=== PATIENT | female | born 1965 | race African-American/Black ===

== ENCOUNTER 2018-01-21 07:43 | Emergency (ER) | payer MEDICAID ==
[~2018-01-21] VITALS: Ht 160 cm; Wt 65.8 kg
[2018-01-21] MEDS ORDERED: LORATADINE1 GM MC (07:54)
[2018-01-21] MEDS ORDERED: NORCO 10-325 T1 EACH ORAL (07:54)
--- NOTE | 2018-01-21 08:28 | Emergency Room Report ---
History of Present Illness General Chief Complaint: Flu Like Symptoms Source: Patient Present Illness HPI Patient presents with complaints of body aches cough and congestion Reports ongoing for the past 2 days Denies any vomiting or diarrhea denies any neck pain or photophobia She feels that the cough is getting more productive Denies any recent travel denies any pleurisy she felt that she has some increased pain with cough on the left side of her chest Allergies: Coded Allergies: ASPIRIN (Verified Allergy, Unknown, 01/21/18) Patient History Past Medical History: see triage record Pertinent Family History: none Last Menstrual Period: 2016 Now: No Reviewed Nursing Documentation: PMH: Agreed; PSxH: Agreed Nursing Documentation-PMH Past Medical History: No History, Except For Hx Hypertension: Yes Hx COPD: Yes Review of Systems All Other Systems: negative except mentioned in HPI Physical Exam Vital Signs Date Time Temp Pulse Resp B/P (MAP) Pulse Ox O2 Delivery O2 Flow Rate FiO2 01/21/18 07:48 99.1 98 18 150/95 98 Room Air Sp02 EP Interpretation: reviewed, normal General Appearance: well appearing, no apparent distress Head: normocephalic, atraumatic Eyes: bilateral eye PERRL, bilateral eye EOMI ENT: hearing grossly normal, normal pharynx, TMs + canals normal, uvula midline Neck: full range of motion, supple, no meningismus, no bony tend Respiratory: lungs clear, normal breath sounds, no rhonchi, no respiratory distress, no retraction, no accessory muscle use Cardiovascular #1: normal peripheral pulses, regular rate, rhythm, no edema, no gallop, no JVD, no murmur Gastrointestinal: normal bowel sounds, non tender, soft, no mass, no organomegaly, non-distended, no guarding, no hernia, no pulsatile mass, no rebound Genitourinary: no CVA tenderness Musculoskeletal: normal inspection Neurologic: oriented x3, responsive, nut sifter III-XII nml as tested, motor strength/ tone normal, sensory intact Psychiatric: mood/affect normal Skin: normal color, no rash, warm/dry, palpation normal Lymphatic: normal inspection, no adenopathy Medical Decision Making Diagnostic Impression: Primary Impression: Influenza-like symptoms ER Course Patient's history and clinical exam is consistent with likely flu symptoms Given the productive cough and the presentation however x-ray imaging was obtained did not show any acute process Patient remains hemodynamically stable on the cardiac monitoring and is appropriate for close outpatient follow-up I did recommend Tamiflu as the patient was only one to 2 days from the initial symptoms however patient reports that her symptoms did not feel that significant to her she will follow closely Chest X-Ray Diagnostic Results Chest X-Ray Diagnostic Results : Chest X-Ray Ordered: Yes # of Views/Limited/Complete: 1 View Indication: Chest Pain EP Interpretation: Yes Interpretation: no consolidation, no effusion, no pneumothorax Impression: No acute disease Electronically Signed by: Moreno Morgan DO Last Vital Signs Date Time Temp Pulse Resp B/P (MAP) Pulse Ox O2 Delivery O2 Flow Rate FiO2 01/21/18 07:48 99.1 98 18 150/95 98 Room Air Status: improved Disposition: HOME, SELF-CARE Condition: Improved Scripts Dextromethorphan Hb/Doxylamine (ROBITUSSIN NIGHTTIME COUGH DM) 237 Ml Liquid 10 ML PO QHS for 5 Days, ML Prov: Moreno Morgan DO 01/21/18 Oseltamivir Phosphate (Tamiflu) 75 Mg Capsule 75 MG ORAL TWICE A DAY for 5 Days, CAP Prov: Moreno Morgan DO 01/21/18 Referrals: [facility],REFERRING (PCP) Additional Instructions: Patient is provided with the discharge instructions notified to follow up with primary doctor in the next 2-3 days otherwise return to the er with any worsening symptoms. Please note that this report is being documented using Vpon technology. This can lead to erroneous entry secondary to incorrect interpretation by the dictating instrument. Moreno Morgan DO Jan 21, 2018 08:28
[2018-01-21 08:46] VITALS: BP 148/92
[2018-01-21] MEDS ORDERED: TAMIFLU75 MG ORAL (09:37)
[2018-01-21] MEDS ORDERED: ROBITUSSIN NIG237 ML PO (09:37)
[2018-01-21 10:12] VITALS: BP 148/92
--- NOTE | 2018-01-21 13:13 | Diagnostic Imaging Report ---
Indication: Shortness of breath and cough Technique: One view of the chest Comparison: 11/04/2014 Findings: The heart is borderline enlarged. Lungs and pleural spaces are clear. The bones are unremarkable Impression: Borderline cardiomegaly. No acute process
== END 2018-01-21 10:14 | disposition home or self-care (01) ==
LOC: EMR 08:11
DX: J11.1 Influenza due to unidentified influenza virus with other respiratory manifestations (principal); I10 Essential (primary) hypertension; J44.9 Chronic obstructive pulmonary disease, unspecified; R07.9 Chest pain, unspecified; Z88.6 Allergy status to analgesic agent
CPT/HCPCS: 71045; 99283

== ENCOUNTER 2018-03-11 07:55 | Emergency (ER) | payer MEDICAID ==
[~2018-03-11] VITALS: Ht 160 cm; Wt 65.8 kg
[~2018-03-11 07:55] MED LIST: LORATADINE1 GM MC; NORCO 10-325 T1 EACH ORAL; ROBITUSSIN NIG237 ML PO; TAMIFLU75 MG ORAL
--- NOTE | 2018-03-11 08:05 | Emergency Room Report ---
History of Present Illness General Chief Complaint: Dyspnea/Respdistress Source: Patient Present Illness HPI Patient is a 52-year-old female presented after increased cough and difficulty breathing. Patient had recently been started on doxycycline. Patient was noted to have prior history of COPD and had been taking multiple inhalers. She reports being a smoker. She reported having increased nonproductive cough as well as some difficulty with respirations. She states she had gradual onset. She denies any leg pain or swelling. She denies being . She reports having some chest tightness. She denies any headache or sore throat. Allergies: Coded Allergies: ASPIRIN (Verified Allergy, Unknown, 01/21/18) Patient History Past Medical History: see triage record Last Menstrual Period: 2 years Now: No Reviewed Nursing Documentation: PMH: Agreed; PSxH: Agreed Nursing Documentation-PMH Past Medical History: No History, Except For Hx Hypertension: Yes Hx COPD: Yes Review of Systems All Other Systems: negative except mentioned in HPI Physical Exam Vital Signs Date Time Temp Pulse Resp B/P (MAP) Pulse Ox O2 Delivery O2 Flow Rate FiO2 03/11/18 07:56 97.7 92 20 137/95 99 Room Air Sp02 EP Interpretation: reviewed, normal General Appearance: normal inspection, alert, GCS 15, mild distress Head: atraumatic ENT: normal ENT inspection, hearing grossly normal, normal voice Neck: normal inspection, full range of motion, supple, no bony tend Respiratory: normal inspection, no respiratory distress, no retraction, wheezing Cardiovascular #1: regular rate, rhythm, no edema Gastrointestinal: normal inspection, normal bowel sounds, non tender, soft, no guarding, no hernia Genitourinary: no CVA tenderness Musculoskeletal: normal inspection, back normal, normal range of motion Neurologic: normal inspection, alert, oriented x3, responsive, mobile sales technician III-XII nml as tested, speech normal Psychiatric: normal inspection, judgement/insight normal, mood/affect normal Skin: normal inspection, normal color, no rash Medical Decision Making Last Vital Signs Date Time Temp Pulse Resp B/P (MAP) Pulse Ox O2 Delivery O2 Flow Rate FiO2 03/11/18 07:56 97.7 92 20 137/95 99 Room Air Umesh Munoz MD Mar 11, 2018 08:05
[2018-03-11 08:10] VITALS: BP 128/72
--- NOTE | 2018-03-11 08:10 | NUR ---
ED Nurse Note: Pt AAO x4 present at ER c/o dry, non-productive cough x1-2weeks without improving. Pt denied throat pain, N/V, SOB. Shallow voice but no signs of respiratory distress noted. Remaining calm with initial assessment and VSS.
[2018-03-11] MEDS ORDERED: SINGULAIR10 MG ORAL (08:11)
[2018-03-11] MEDS ORDERED: VENTOLIN HFA18 GM INH (08:11)
[2018-03-11] MEDS ORDERED: DOXYCYCLINE MO100 MG ORAL (08:11)
[2018-03-11] MEDS ORDERED: SYMBICORT 1601 PUFFS INH (08:11)
[2018-03-11] MEDS ORDERED: Albuterol/Ipratropium 3ml neb HHN ONE (08:15)
--- NOTE | 2018-03-11 10:30 | NUR ---
ED Nurse Note: Pt was cleared to be discharged by ERMD. Pt received prescription and discharge instruction with fully understanding demonstration. Pt amulated to be discharged. ID band removed.
[2018-03-11] MEDS ORDERED: PREDNISONE20 MG ORAL (10:31)
[2018-03-11 10:40] VITALS: BP 124/77
--- NOTE | 2018-03-11 13:26 | Diagnostic Imaging Report ---
Indication: Shortness of breath Technique: One view of the chest Comparison: 01/21/2018 Findings: Less optimal inspiration currently. Interim development of bilateral basilar interstitial opacities and left basilar airspace opacities and likely pleural fluid. The heart is borderline enlarged Impression: Hypoventilatory exam Bilateral basilar interstitial and left basilar airspace opacities, possibly in part artifactual due to low lung volumes, but edema or infiltrate suspected. Suspect left-sided pleural effusion as well
--- NOTE | 2018-03-16 18:02 | Cardiology Report ---
APPROVED REPORT EKG Measurement Heart [id number] ME [id number] Sinus rhythm with frequent premature ventricular complexes and fusion complexes Possible Left atrial enlargement Possible Inferior infarct, age undetermined Anterior infarct, age undetermined Abnormal ECG
== END 2018-03-11 10:30 | disposition home or self-care (01) ==
LOC: EMR 08:15
DX: J44.1 Chronic obstructive pulmonary disease with (acute) exacerbation (principal); I10 Essential (primary) hypertension; Z88.6 Allergy status to analgesic agent
CPT/HCPCS: 71045; 93005; 94640; 99284; J7620

== ENCOUNTER 2018-04-16 15:00 | Emergency (ER) | payer MEDICAID ==
[~2018-04-16] VITALS: Ht 160 cm; Wt 65.8 kg
[~2018-04-16 15:00] MED LIST changes: +DOXYCYCLINE MO100 MG ORAL; +PREDNISONE20 MG ORAL; +SINGULAIR10 MG ORAL; +SYMBICORT 1601 PUFFS INH; +VENTOLIN HFA18 GM INH
[2018-04-16 15:07] VITALS: BP 141/96
--- NOTE | 2018-04-16 15:07 | NUR ---
ED Nurse Note: Pt. AAOX4. ambulatory c/o hard time breathing x 1 month after taking med (doxycycline) 'I am allergic to'; patient smoked cigarette 30 min ago.
[2018-04-16] MEDS ORDERED: CYCLOBENZAPRINE10 MG ORAL (15:14)
[2018-04-16] MEDS ORDERED: MUCINEX600 MG PO (15:14)
[2018-04-16] MEDS ORDERED: NORCO 10-325 T1 EACH ORAL (15:14)
--- NOTE | 2018-04-16 15:30 | Emergency Room Report ---
History of Present Illness General Chief Complaint: Dyspnea/Respdistress Source: Patient Present Illness HPI Patient presents with dyspnea. She started having difficulty when she was treated here with doxycycline in March. She thought she was having an allergic reaction to doxycycline and therefore was treated with Benadryl and prednisone. She started having reactions the prednisone also. She is using her inhaler at this time. It has been helping. She does not have a nebulizer at home. She still smokes. She denies chest pain per se. The reaction to the prednisone was some jerking of her eyes. No loss of consciousness. No productive cough at this time. No rashes or hives. No swelling of her throat. She relates a lot of stress at this time and anxiety. She has a knot at the base of her neck. She states that this is been checked out although she doesn't think with an ultrasound. She states that her thyroid function is normal. No fevers, chills, palpitations, nausea, vomiting, diarrhea, dysuria, abdominal pain, depression, visual changes, headache. Allergies: Coded Allergies: ASPIRIN (Verified Allergy, Unknown, 01/21/18) DOXYCYCLINE (Verified Allergy, Unknown, 04/16/18) Patient History Past Medical History: see triage record Social History: Reports: smoking Social History Narrative has a child in school Last Menstrual Period: 2 years ago Reviewed Nursing Documentation: PMH: Agreed; PSxH: Agreed Nursing Documentation-PMH Past Medical History: No History, Except For Hx Cardiac Problems: No - bulging disc Hx Hypertension: No Hx Pacemaker: No Hx Asthma: No Hx COPD: Yes Hx Diabetes: No Hx Cancer: No Hx Gastrointestinal Problems: No Hx Dialysis: No History Of Psychiatric Problem: No Hx Neurological Problems: No Hx Cerebrovascular Accident: No Hx Seizures: No Physical Exam Vital Signs Date Time Temp Pulse Resp B/P (MAP) Pulse Ox O2 Delivery O2 Flow Rate FiO2 04/16/18 15:07 97.7 92 20 141/96 96 Room Air Sp02 EP Interpretation: reviewed, normal General Appearance: well appearing, no apparent distress, GCS 15 Head: normocephalic Eyes: bilateral eye normal inspection, bilateral eye PERRL ENT: moist mucus membranes Neck: supple, thyromegaly - possible nodule Respiratory: lungs clear, normal breath sounds Cardiovascular #1: regular rate, rhythm Cardiovascular #2: 2+ radial (R) Gastrointestinal: normal inspection, normal bowel sounds, non tender, no mass, non-distended Musculoskeletal: back normal, gait/station normal, normal range of motion, no calf tenderness Neurologic: alert, oriented x3, grossly normal Psychiatric: anxious Skin: normal inspection, warm/dry Medical Decision Making Diagnostic Impression: Primary Impression: Dyspnea Qualified Codes: R06.00 - Dyspnea, unspecified Additional Impressions: Tobacco abuse Anxiety ER Course Patient presents with dyspnea and multiple other complaints. Differential includes allergic reaction, anxiety, acute myocardial infarction, exacerbation COPD, pulmonary embolus amongst others. Based on physical exam pulmonary embolus less likely. Evaluation with EKG, chest x-ray and labs. Lungs are clear at this time and no breathing treatment is ordered. The patient states she can only stay for half an hour and therefore blood work is canceled. EKG without injury. Chest x-ray with increased razo the right base. There is resolution of the left infiltrate. Discussed the difficulty of making a diagnosis based on short evaluation. However as she is afebrile and his resolution on her x-ray antibiotics are not indicated at this time. Patient will be treated with a steroid inhaler and also given an anxiolytic. No apparent medical emergency at this time. Patient stable for outpatient observation and treatment. She was advised to return if she is not doing well to complete further evaluation workup. Laboratory Tests Test 04/16/18 15:30 Urine Color Pale yellow Urine Appearance Slightly cloudy Urine pH 6 (4.5-8.0) Urine Specific Coden 1.010 (1.005-1.035) Urine Protein Negative (NEGATIVE) Urine Glucose (UA) Negative (NEGATIVE) Urine Ketones Negative (NEGATIVE) Urine Blood Negative (NEGATIVE) Urine Nitrite Negative (NEGATIVE) Urine Bilirubin Negative (NEGATIVE) Urine Urobilinogen Normal MG/DL (0.0-1.0) Urine Leukocyte Esterase 1+ (NEGATIVE) H Urine RBC 0-2 /HPF (0 - 2) Urine WBC 0-2 /HPF (0 - 2) Urine Squamous Epithelial Cells Many /LPF (NONE/OCC) H Urine Bacteria Moderate /HPF (NONE) H Urine Opiates Screen Negative (NEGATIVE) Urine Barbiturates Screen Negative (NEGATIVE) Phencyclidine (PCP) Screen Negative (NEGATIVE) Urine Amphetamines Screen Negative (NEGATIVE) Urine Benzodiazepines Screen Negative (NEGATIVE) Urine Cocaine Screen Negative (NEGATIVE) Urine Marijuana (THC) Screen Negative (NEGATIVE) EKG Diagnostic Results Rate: normal Rhythm: NSR ST Segments: no acute changes Rhythm Strip Diag. Results EP Interpretation: yes Rhythm: NSR, no PVC's, no ectopy Chest X-Ray Diagnostic Results Chest X-Ray Diagnostic Results : Chest X-Ray Ordered: Yes Indication: Shortness of Breath EP Interpretation: Yes Interpretation: no effusion, no pneumothorax, other - increased razo R base Impression: Other Electronically Signed by: Electronically signed by Charlie Christian MD Last Vital Signs Date Time Temp Pulse Resp B/P (MAP) Pulse Ox O2 Delivery O2 Flow Rate FiO2 04/16/18 16:07 98.0 86 22 124/86 99 Room Air Status: unchanged Disposition: HOME, SELF-CARE Condition: Stable Scripts Lorazepam* (ATIVAN*) 0.5 Mg Tablet 0.5 MG ORAL THREE TIMES A DAY, #6 TAB Prov: Charlie Christian MD 04/16/18 Beclomethasone Dipropionate 40MCG Oral Inh (QVAR 40*) 7.3 Gm Aer.w.adap 2 PUFFS INH TWICE A DAY, #1 GM 0 Refills Prov: Charlie Christian MD 04/16/18 Charlie Christian MD Apr 16, 2018 15:30
[2018-04-16 15:57] LABS: APPEARANCE,URINE SLIGHTLY CLOUDY; BILIRUBIN, URINE NEGATIVE (NEGATIVE); COLOR,URINE PALE YELLOW; GLUCOSE, URINE (UA) NEGATIVE (NEGATIVE); KETONES,URINE NEGATIVE (NEGATIVE); LEUKOCYTE ESTERASE ,URINE 1+ (NEGATIVE); NITRITE,URINE NEGATIVE (NEGATIVE); PH,URINE 6 (4.5-8.0); PROTEIN,URINE NEGATIVE (NEGATIVE); UROBILINOGEN,URINE NORMAL MG/DL (0.0-1.0)
[2018-04-16] MEDS ORDERED: ATIVAN0.5 MG ORAL (16:03)
[2018-04-16] MEDS ORDERED: QVAR7.3 GM INH (16:03)
[2018-04-16 16:07] VITALS: BP 124/86
--- NOTE | 2018-04-16 16:07 | NUR ---
ED Nurse Note: PT. AAOX4. LEFT WITH A STEADY GAIT. LEFT WITH ALL BELONGINGS. PT. EDUCATION DONE REGARDING D/C INSTRUCTIONS. PT. VERBALIZED THE UNDERSTANDING. VSS. ID ARMBAND REMOVED
--- NOTE | 2018-04-16 17:29 | Diagnostic Imaging Report ---
Indication: Cough Technique: One view of the chest Comparison: 03/11/2018 Findings: Small left-sided pleural effusion persists, significant early smaller than that seen previously. No definite congestion currently; previously demonstrated interstitial edema largely resolved. The heart remains enlarged. The right pleural space remains clear Impression: Cardiomegaly Small left pleural effusion
--- NOTE | 2018-04-17 15:12 | Cardiology Report ---
APPROVED REPORT EKG Measurement Heart [id number] [place] [id number] Sinus rhythm with occasional premature ventricular complexes Possible Left atrial enlargement Left axis deviation Low voltage QRS Inferior infarct, age undetermined Cannot rule out Anterior infarct, age undetermined Abnormal ECG
== END 2018-04-16 16:07 | disposition home or self-care (01) ==
LOC: EMR 15:32
DX: R06.00 Dyspnea, unspecified (principal); Z72.0 Tobacco use; F41.9 Anxiety disorder, unspecified; J44.9 Chronic obstructive pulmonary disease, unspecified; Z88.6 Allergy status to analgesic agent; Z88.1 Allergy status to other antibiotic agents
CPT/HCPCS: 71045; 80307; 81003; 87086; 93005; 99284

== ENCOUNTER 2018-05-06 11:59 | Inpatient (IN) | payer MEDICAID ==
[~2018-05-06] VITALS: Ht 165.1 cm; Wt 69.9 kg
[~2018-05-06 11:59] MED LIST changes: +ATIVAN0.5 MG ORAL; +CYCLOBENZAPRINE10 MG ORAL; +MUCINEX600 MG PO; +QVAR7.3 GM INH
[2018-05-06] MEDS ORDERED: Albuterol ud Inhalation HHN ONE (12:15)
[2018-05-06] MEDS ORDERED: Ipratropium 0.02% Inh Soln 2.5ml UD HHN ONE (12:15)
[2018-05-06] MEDS ORDERED: Solu-MEDROL 125mg Inj IVP ONE (12:15)
[2018-05-06 12:34] LABS: BASOPHILS % (AUTO) 2.1 % (0.0-2.0); EOSINOPHILS % (AUTO) 1.7 % (0.0-3.0); HEMATOCRIT 41.6 % (37.0-47.0); HEMOGLOBIN 13.9 G/DL (12.0-16.0); LYMPHOCYTES % (AUTO) 40.9 % (20.0-45.0); MEAN CORPUSCULAR VOLUME 94 FL (80-99); NEUTROPHILS % (AUTO) 47.4 % (45.0-75.0); PLATELET COUNT 284 K/UL (150-450); RED BLOOD COUNT 4.44 M/UL (4.20-5.40); RED CELL DISTRIBUTION WIDTH 12.3 % (11.6-14.8); WHITE BLOOD COUNT 6.2 K/UL (4.8-10.8)
[2018-05-06 12:45] LABS: ANION GAP 8 mmol/L (5-15); BLOOD UREA NITROGEN 12 mg/dL (7-18); CARBON DIOXIDE 24 MMOL/L (21-32); CHLORIDE 109 MMOL/L (98-107); POTASSIUM 3.8 MMOL/L (3.5-5.1); SODIUM 141 MMOL/L (136-145)
[2018-05-06 12:52] VITALS: BP 134/96
[2018-05-06 12:57] LABS: ALANINE AMINOTRANSFERASE 42 U/L (12-78); ALBUMIN 3.4 G/DL (3.4-5.0); ALKALINE PHOSPHATASE 66 U/L (46-116); ASPARTATE AMINO TRANSFERASE 24 U/L (15-37); BILIRUBIN,TOTAL 0.6 MG/DL (0.2-1.0)
[2018-05-06] MEDS ORDERED: Isovue-370 150ml vial INJ PRN (13:15)
--- NOTE | 2018-05-06 13:16 | NUR ---
ED Nurse Note:urine sent to labs and pt. went to CT chest
[2018-05-06 13:27] LABS: APPEARANCE,URINE SLIGHTLY CLOUDY; BILIRUBIN, URINE NEGATIVE (NEGATIVE); COLOR,URINE PALE YELLOW; GLUCOSE, URINE (UA) NEGATIVE (NEGATIVE); KETONES,URINE NEGATIVE (NEGATIVE); LEUKOCYTE ESTERASE ,URINE NEGATIVE (NEGATIVE); NITRITE,URINE NEGATIVE (NEGATIVE); PH,URINE 5 (4.5-8.0); PROTEIN,URINE 1+ (NEGATIVE); UROBILINOGEN,URINE NORMAL MG/DL (0.0-1.0)
--- NOTE | 2018-05-06 14:15 | Diagnostic Imaging Report ---
ndication: Shortness of breath Technique: IV administration nonionic contrast. Spiral acquisitions obtained from the lung bases to the lung apices. Multiplanar and 3-D reconstructions were generated. Total dose length product 645.67 mGycm. CTDIvol(s) 18.92 mGy. Dose reduction achieved using automated exposure control Comparison: none Findings: The pulmonary arteries are well opacified. No intraluminal filling defects or other findings to suggest acute pulmonary embolus demonstrated. Pulmonary arteries are normal in caliber. No evidence of isolated right ventricular dilatation. No evidence of thoracic aortic aneurysm or dissection. Normal branching anatomy of the great neck vessels, which are patent. Small bullae are seen in the lung apices bilaterally as well as scattered elsewhere within the lungs. There is diffuse mild groundglass opacity of the pulmonary parenchyma. A focal area of groundglass opacity is seen in the superior segment of the right lower lobe, measuring 15 mm in diameter, image 42 series 8. Areas of bronchiectasis, volume loss, bronchial wall thickening are seen in the medial right middle lobe. Interstitial septal thickening is seen at the lung bases, right greater than left. Some atelectatic changes are seen at both lung bases. There is a small to moderate right and small left pleural effusion demonstrated. Atelectasis or scarring is seen in the inferior lingula on the left. There is a right hilar mass or node which measures 18 mm in diameter. This is fairly low in attenuation, measuring approximately 13 Hounsfield units. The mediastinum is diffusely edematous. Prominent mediastinal nodes are demonstrated, but difficult to measure as they are difficult to distinguish from the surrounding edematous mediastinal fat. Prevascular space nodes measure up to 22 mm in diameter. Subcarinal nodes measure up to 22 mm in diameter. There is some thickening of the pulmonary hilum on the left without discrete adenopathy. The heart is enlarged. No pericardial effusion. The included portion of the thyroid is unremarkable. No axillary or chest wall mass or adenopathy demonstrated. The bones are unremarkable. Esophagus is unremarkable. The included upper abdominal anatomy is unremarkable. Impression: Negative for evidence of acute pulmonary embolus Bullous COPD changes Cardiomegaly Bilateral pleural effusion Diffuse mild groundglass opacity of the pulmonary parenchyma, as well as basilar interstitial septal thickening, likely reflecting mild pulmonary edema 18 mm right hilar mass or node. This is low in attenuation, indicating that it could be necrotic or could represent a cystic structure Borderline enlarged mediastinal lymph nodes. Focal 15 mm groundglass nodule in the right lower lobe. Consider short interval CT follow-up at 6-[address] scanner at [facility] is accredited by the [employer] and the scans are performed using protocols designed to limit radiation exposure to as low as reasonably achievable to attain images of sufficient resolution adequate for diagnostic evaluation.
--- NOTE | 2018-05-06 14:17 | Diagnostic Imaging Report ---
Indication: Shortness of breath Technique: One view of the chest Comparison: 04/16/2018 Findings: Heart is enlarged. Bilateral interstitial congestion appears slightly worse than on the prior exam. Bilateral small pleural effusions appear new or increased from the prior exam. Impression: Cardiomegaly Bilateral interstitial edema and small bilateral pleural effusions, all increased from prior study of 04/16/2018
--- NOTE | 2018-05-06 14:34 | Emergency Room Report ---
History of Present Illness General Chief Complaint: Dyspnea/Respdistress Source: Patient Present Illness HPI 52-year-old female presents ED for evaluation. Patient complaining of shortness of breath since last night. States that she's been prescribed inhalers in the past. Was told that she has COPD. States her inhaler is not helping her at this time. Denies cough. Denies chest pain. Denies fevers or chills. States she has not smoked recently because of her wheezing. Denies sick contacts or recent travel. No other aggravating relieving factors. Denies any other associated symptoms Allergies: Coded Allergies: ASPIRIN (Verified Allergy, Unknown, 05/06/18) DOXYCYCLINE (Verified Allergy, Unknown, 05/06/18) Patient History Past Medical History: COPD Past Surgical History: none Pertinent Family History: none Social History: Denies: smoking, alcohol use, drug use Last Menstrual Period: 2016 Now: No Immunizations: UTD Reviewed Nursing Documentation: PMH: Agreed; PSxH: Agreed Nursing Documentation-PMH Past Medical History: No History, Except For Hx Cardiac Problems: No - bulging disc Hx Hypertension: No Hx Pacemaker: No Hx Asthma: No Hx COPD: Yes Hx Diabetes: No Hx Cancer: No Hx Gastrointestinal Problems: No Hx Dialysis: No Hx Neurological Problems: No Hx Cerebrovascular Accident: No Hx Seizures: No Review of Systems All Other Systems: negative except mentioned in HPI Physical Exam Vital Signs Date Time Temp Pulse Resp B/P (MAP) Pulse Ox O2 Delivery O2 Flow Rate FiO2 05/06/18 12:02 97.3 98 20 134/96 97 Room Air 05/06/18 12:33 21 Sp02 EP Interpretation: reviewed, normal General Appearance: no apparent distress, alert, GCS 15, non-toxic Head: normocephalic, atraumatic Eyes: bilateral eye normal inspection, bilateral eye PERRL ENT: hearing grossly normal, normal pharynx, no angioedema, normal voice Neck: full range of motion, supple/symm/no masses Respiratory: chest non-tender, normal breath sounds, speaking full sentences, wheezing Cardiovascular #1: regular rate, rhythm, no edema Cardiovascular #2: 2+ carotid (R), 2+ carotid (L), 2+ radial (R), 2+ radial (L) , 2+ dorsalis pedis (R), 2+ dorsalis pedis (L) Gastrointestinal: normal bowel sounds, non tender, soft, non-distended, no guarding, no rebound Rectal: deferred Genitourinary: normal inspection, no CVA tenderness Musculoskeletal: back normal, gait/station normal, normal range of motion, non- tender Neurologic: alert, oriented x3, responsive, motor strength/tone normal, sensory intact, speech normal Psychiatric: judgement/insight normal, memory normal, mood/affect normal, no suicidal/homicidal ideation Reflexes: 3+ bicep (R), 3+ bicep (L), 3+ tricep (R), 3+ tricep (L), 3+ knee (R) , 3+ knee (L) Skin: normal color, no rash, warm/dry, well hydrated Lymphatic: no adenopathy Procedures Critical Care Time Critical Care Time i. I feel this is a highly complex case requiring extensive working including EKG/Rhythm strip, Xray/CT/US, Blood/urine lab work, repeat exams while in ED, and administration of strong opiates/narcotics for pain control, admission to hospital or close patient follow up. Total time: 45 min bedside evaluation and treatment excludes procedures (EKG). Reason for critical care: dyspnea, elevated troponin Possible complications: hypotension, hypertension, MA, shock, arrhythmias, metabolic acidosis, end organ damage, respiratory failure. Interventions: labs, EKG, CXR, nebulizer treatments, evaluation of d-dimer, CTA. heparin. Course: Patient presenting with shortness of breath persistent despite nebulizer treatments. Labs show elevated troponin of 1.7, d-dimer elevated. EKG showing no ST elevations. CTA J shows no evidence of PE. COPD with bullous changes. Heparin given. aspirin given Consultations: nursing staff, EMS, family Performed by: Dr Nicole Tolerated well condition = serious j. because of unstable vital signs this patient had a condition that could potentially threaten life or limb. I feel this is a critical patient who required my full attention while patient was considered critical. Total Critical Care Time excluding procedures was greater than 45 minutes Medical Decision Making Diagnostic Impression: Primary Impression: NSTEMI (non-ST elevated myocardial infarction) Additional Impression: COPD exacerbation ER Course Hospital Course 52-year-old female presents ED complaining of SOB. Differential diagnoses include: MA/unstable angina, contusion, muscle strain, PTX, rib fracture Clinical course After initial history and physical I ordered labs, EKG, chest x-ray, nebulizer treatment labs reviewed- no leukocytosis, electrolytes ok, trop 1.7, d-dimer elevated EKG- NSR, no acute ischemic changes interrepted by me Chest x-ray- cardiomegaly CTA - no evidence of PE. evidence of COPD with bullous changes Patient denies chest pain. No evidence of ST elevations. Patient given Plavix , heparin drip started patient will be admitted to Dr Lambert's service I. I feel this is a highly complex case requiring extensive working including EKG/Rhythm strip, Xray/CT/US, Blood/urine lab work, repeat exams while in ED, and administration of strong opiates/narcotics for pain control, admission to hospital or close patient follow up. Diagnosis - NSTEMI, COPD admitted to [facility] in serious condition Labs Test 05/06/18 12:20 05/06/18 13:00 White Blood Count 6.2 K/UL (4.8-10.8) Red Blood Count 4.44 M/UL (4.20-5.40) Hemoglobin 13.9 G/DL (12.0-16.0) Hematocrit 41.6 % (37.0-47.0) Mean Corpuscular Volume 94 FL (80-99) Mean Corpuscular Hemoglobin 31.2 PG (27.0-31.0) Mean Corpuscular Hemoglobin Concent 33.4 G/DL (32.0-36.0) Red Cell Distribution Width 12.3 % (11.6-14.8) Platelet Count 284 K/UL (150-450) Mean Platelet Volume 8.3 FL (6.5-10.1) Neutrophils (%) (Auto) 47.4 % (45.0-75.0) Lymphocytes (%) (Auto) 40.9 % (20.0-45.0) Monocytes (%) (Auto) 8.0 % (1.0-10.0) Eosinophils (%) (Auto) 1.7 % (0.0-3.0) Basophils (%) (Auto) 2.1 % (0.0-2.0) Prothrombin Time 10.9 SEC (9.30-11.50) Prothromb Time International Ratio 1.0 (0.9-1.1) Activated Partial Thromboplast Time 28 SEC (23-33) D-Dimer 0.91 mg/L FEU (0.00-0.49) Sodium Level 141 MMOL/L (136-145) Potassium Level 3.8 MMOL/L (3.5-5.1) Chloride Level 109 MMOL/L (98-107) Carbon Dioxide Level 24 MMOL/L (21-32) Anion Gap 8 mmol/L (5-15) Blood Urea Nitrogen 12 mg/dL (7-18) Creatinine 1.0 MG/DL (0.55-1.30) Estimat Glomerular Filtration Rate > 60 mL/min (>60) Glucose Level 92 MG/DL (74-106) Calcium Level 9.0 MG/DL (8.5-10.1) Total Bilirubin 0.6 MG/DL (0.2-1.0) Aspartate Amino Transf (AST/SGOT) 24 U/L (15-37) Alanine Aminotransferase (ALT/SGPT) 42 U/L (12-78) Alkaline Phosphatase 66 U/L (46-116) Troponin I 1.707 ng/mL (0.000-0.056) Pro-B-Type Natriuretic Peptide 4291 pg/mL (0-125) Total Protein 6.7 G/DL (6.4-8.2) Albumin 3.4 G/DL (3.4-5.0) Globulin 3.3 g/dL Albumin/Globulin Ratio 1.0 (1.0-2.7) Urine Color Pale yellow Urine Appearance Slightly cloudy Urine pH 5 (4.5-8.0) Urine Specific [place] 1.015 (1.005-1.035) Urine Protein 1+ (NEGATIVE) Urine Glucose (UA) Negative (NEGATIVE) Urine Ketones Negative (NEGATIVE) Urine Blood Negative (NEGATIVE) Urine Nitrite Negative (NEGATIVE) Urine Bilirubin Negative (NEGATIVE) Urine Urobilinogen Normal MG/DL (0.0-1.0) Urine Leukocyte Esterase Negative (NEGATIVE) Urine RBC 2-4 /HPF (0 - 2) Urine WBC 2-4 /HPF (0 - 2) Urine Squamous Epithelial Cells Moderate /LPF (NONE/OCC) Urine Bacteria Few /HPF (NONE) EKG Diagnostic Results Rate: normal Rhythm: NSR ST Segments: no acute changes ASA given to the pt in ED: Yes Rhythm Strip Diag. Results EP Interpretation: yes Rhythm: NSR, no PVC's, no ectopy Chest X-Ray Diagnostic Results Chest X-Ray Diagnostic Results : Chest X-Ray Ordered: Yes # of Views/Limited/Complete: 1 View Indication: Shortness of Breath EP Interpretation: Yes Interpretation: no pneumothorax, other - cardiomegaly, bialteral effusions Impression: Other - chf Electronically Signed by: Electronically signed by Curtis Nicole MD CT/MRI/US Diagnostic Results CT/MRI/US Diagnostic Results : Imaging Test Ordered: CTA Chest Impression no evidence of PE. COPD changes with bullous changes. bilateral effusions Last Vital Signs Date Time Temp Pulse Resp B/P (MAP) Pulse Ox O2 Delivery O2 Flow Rate FiO2 05/06/18 12:52 97.3 94 23 134/96 100 Room Air 21 Status: improved Disposition: ADMITTED INPATIENT Condition: Serious Referrals: NOT CHOSEN IPA/,REFERRING (PCP) Curtis Nicole MD May 06, 2018 14:34
--- NOTE | 2018-05-06 14:41 | NUR ---
ED Nurse Note:pt. came back from CT scan, was placed back on monitor
[2018-05-06] MEDS ORDERED: Heparin 25,000u/D5W 500ml 500 ML IV SCH ×3 (15:15→22:45)
[2018-05-06] MEDS ORDERED: Heparin 5000 units/ml inj IV ONE (15:15)
--- NOTE | 2018-05-06 15:47 | NUR ---
ED Nurse Note:started heparin drip at 1540, ordered new ptt in 6 hrs
[2018-05-06 16:24] VITALS: BP 144/81
[2018-05-06] MEDS ORDERED: OMEPRAZOLE40 M1 ORAL (18:03)
[2018-05-06] MEDS ORDERED: ZITHROMAX250 MG ORAL (18:03)
[2018-05-06] MEDS ORDERED: RANITIDINE HCL150 MG ORAL (18:03)
[2018-05-06 18:05] VITALS: BP 145/81
--- NOTE | 2018-05-06 18:06 | NUR ---
ED Nurse Note:called SDU to give report- was told that pt. will come after 07:30
--- NOTE | 2018-05-06 18:47 | Cardiac Electrophysiology PN ---
Subjective Subjective [id number] Objective Last 24 Hour Vital Signs Date Time Temp Pulse Resp B/P (MAP) Pulse Ox O2 Delivery O2 Flow Rate FiO2 05/06/18 18:05 97.3 97 23 145/81 100 Room Air 21 05/06/18 16:24 97.3 100 24 144/81 100 Room Air 21 05/06/18 12:52 97.3 94 23 134/96 100 Room Air 21 05/06/18 12:52 97 23 Room Air 21 05/06/18 12:46 97 23 100 Room Air 21 05/06/18 12:37 89 16 Room Air 21 05/06/18 12:33 89 16 97 Room Air 21 05/06/18 12:33 21 05/06/18 12:02 97.3 98 20 134/96 97 Room Air Laboratory Tests Test 05/06/18 12:20 05/06/18 13:00 White Blood Count 6.2 K/UL (4.8-10.8) Red Blood Count 4.44 M/UL (4.20-5.40) Hemoglobin 13.9 G/DL (12.0-16.0) Hematocrit 41.6 % (37.0-47.0) Mean Corpuscular Volume 94 FL (80-99) Mean Corpuscular Hemoglobin 31.2 PG (27.0-31.0) H Mean Corpuscular Hemoglobin Concent 33.4 G/DL (32.0-36.0) Red Cell Distribution Width 12.3 % (11.6-14.8) Platelet Count 284 K/UL (150-450) Mean Platelet Volume 8.3 FL (6.5-10.1) Neutrophils (%) (Auto) 47.4 % (45.0-75.0) Lymphocytes (%) (Auto) 40.9 % (20.0-45.0) Monocytes (%) (Auto) 8.0 % (1.0-10.0) Eosinophils (%) (Auto) 1.7 % (0.0-3.0) Basophils (%) (Auto) 2.1 % (0.0-2.0) H Prothrombin Time 10.9 SEC (9.30-11.50) Prothromb Time International Ratio 1.0 (0.9-1.1) Activated Partial Thromboplast Time 28 SEC (23-33) D-Dimer 0.91 mg/L FEU (0.00-0.49) H Sodium Level 141 MMOL/L (136-145) Potassium Level 3.8 MMOL/L (3.5-5.1) Chloride Level 109 MMOL/L (98-107) H Carbon Dioxide Level 24 MMOL/L (21-32) Anion Gap 8 mmol/L (5-15) Blood Urea Nitrogen 12 mg/dL (7-18) Creatinine 1.0 MG/DL (0.55-1.30) Estimat Glomerular Filtration Rate > 60 mL/min (>60) Glucose Level 92 MG/DL (74-106) Calcium Level 9.0 MG/DL (8.5-10.1) Total Bilirubin 0.6 MG/DL (0.2-1.0) Aspartate Amino Transf (AST/SGOT) 24 U/L (15-37) Alanine Aminotransferase (ALT/SGPT) 42 U/L (12-78) Alkaline Phosphatase 66 U/L (46-116) Troponin I 1.707 ng/mL (0.000-0.056) Pro-B-Type Natriuretic Peptide 4291 pg/mL (0-125) H Total Protein 6.7 G/DL (6.4-8.2) Albumin 3.4 G/DL (3.4-5.0) Globulin 3.3 g/dL Albumin/Globulin Ratio 1.0 (1.0-2.7) Urine Color Pale yellow Urine Appearance Slightly cloudy Urine pH 5 (4.5-8.0) Urine Specific [place] 1.015 (1.005-1.035) Urine Protein 1+ (NEGATIVE) H Urine Glucose (UA) Negative (NEGATIVE) Urine Ketones Negative (NEGATIVE) Urine Blood Negative (NEGATIVE) Urine Nitrite Negative (NEGATIVE) Urine Bilirubin Negative (NEGATIVE) Urine Urobilinogen Normal MG/DL (0.0-1.0) Urine Leukocyte Esterase Negative (NEGATIVE) Urine RBC 2-4 /HPF (0 - 2) H Urine WBC 2-4 /HPF (0 - 2) Urine Squamous Epithelial Cells Moderate /LPF (NONE/OCC) H Urine Bacteria Few /HPF (NONE) Eleazar Jacinto MD May 06, 2018 18:47
--- NOTE | 2018-05-06 18:59 | NUR ---
ED Nurse Note:pt. was transfered to SDU unit
[2018-05-06] MEDS ORDERED: Albuterol/Ipratropium 3ml neb HHN PRN (19:30)
[2018-05-06] MEDS ORDERED: Morphine Sulfate 2mg/ml Inj(IV/IM USE ONLY) IVP PRN (19:30)
[2018-05-06] MEDS ORDERED: Nitroglycerin Subl 0.4mg tab SL PRN (19:30)
--- NOTE | 2018-05-06 19:30 | NUR ---
NURSE NOTES: Received report from BERNARDA Iraheta. Pt's admitted to SDU from ER due to COPD exacerbation, and NSTEMI, currently on heparin drip at 12units/kg/hr via Right AC 20G. Pt's AO x 4, pleasant, on room air, VS stable, regular diet PO, able to ambulate with steady gait. Denies any other concerns/complaints at this time. Call light within reach, Bed in low and locked position. Will continue to monitor.
[2018-05-06 20:00] VITALS: BP 123/80
--- NOTE | 2018-05-06 20:05 | History and Physical ---
History of Present Illness General Date patient seen: May 06, 2018 Time patient seen: 19:44 Reason for Hospitalization: Dyspnea/Respdistress Present Illness HPI 52-year-old female presents ED for evaluation. Patient complaining of shortness of breath since last night. States that she's been prescribed inhalers in the past. Was told that she has COPD. States her inhaler is not helping her at this time. Denies cough. Denies chest pain. Denies fevers or chills. States she has not smoked recently because of her wheezing. Denies sick contacts or recent travel. No other aggravating relieving factors. Denies any other associated symptoms. states that she is having this burning sensations feeling for a while. has not smoked in last 3 days. denies any cocaine/ admits some marijuana. no alcohol for last week -stoppped due to burning feeling. states last time she got prednisone and that was making my eyes coming out. I googled and stopped prednisone. states now feeling ok. no chest pain now. no leg swelling. feels short of breath with talking. mentions heart doc just saw her and getting ultrasound of heart. states allergy to aspirin. Allergies: Coded Allergies: ASPIRIN (Verified Allergy, Unknown, 05/06/18) DOXYCYCLINE (Verified Allergy, Unknown, 05/06/18) Medication History Scheduled Azithromycin* (Zithromax*), 250 MG ORAL DAILY, (Reported) Omeprazole (Omeprazole), Unknown Dose ORAL DAILY, (Reported) Miscellaneous Medications Ranitidine Hcl* (Zantac*), Unknown Dose ORAL, (Reported) Discontinued Medications Albuterol Sulfate (Ventolin Hfa), 2 PUFFS INH EVERY 6 HOURS, (Reported) Discontinued Reason: Pt stopped taking med Beclomethasone Dipropionate 40MCG Oral Inh (Qvar 40*), 2 PUFFS INH TWICE A DAY Discontinued Reason: Pt stopped taking med Budesonide/Formoterol Fumarate (Symbicort 160-4.5 Mcg Inhaler), 1 PUFF INH TWICE A DAY, (Reported) Discontinued Reason: Pt stopped taking med Cyclobenzaprine Hcl* (Flexeril*), 10 MG ORAL THREE TIMES A DAY, (Reported) Discontinued Reason: Pt stopped taking med Dextromethorphan Hb/Doxylamine (Robitussin Nighttime Cough Dm), 10 ML PO QHS Discontinued Reason: Pt stopped taking med Doxycycline Monohydrate* (Doxycycline Monohydrate*), 100 MG ORAL TWICE A DAY, ( Reported) Discontinued Reason: Pt stopped taking med Guaifenesin (Mucinex), Unknown Dose PO BID, (Reported) Discontinued Reason: Pt stopped taking med Hydrocodone Bit/Acetaminophen 10-325* ([place] 10-325*), Unknown Dose ORAL Q4H PRN for For Pain, (Reported) Discontinued Reason: Pt stopped taking med Hydrocodone Bit/Acetaminophen 10-325* ([place] 10-325*), 1 TAB ORAL Q6H PRN for For Pain, (Reported) Discontinued Reason: Pt stopped taking med Loratadine (Loratadine), Unknown Dose MC, (Reported) Discontinued Reason: Pt stopped taking med Lorazepam* (Ativan*), 0.5 MG ORAL THREE TIMES A DAY Discontinued Reason: Pt stopped taking med Montelukast Sodium* (Singulair*), 10 MG ORAL DAILY, (Reported) Discontinued Reason: Pt stopped taking med Oseltamivir Phosphate (Tamiflu), 75 MG ORAL TWICE A DAY Discontinued Reason: Pt stopped taking med Prednisone* (Prednisone*), 40 MG ORAL DAILY Discontinued Reason: Pt stopped taking med Patient History History Provided By: Patient Healthcare decision maker Resuscitation status Full code Advanced Directive on File none Patient History Narrative as above in HPI Past Medical/Surgical History Past Medical/Surgical History: (1) Dyspnea (2) Tobacco abuse (3) Spine disorder Review of Systems Constitutional: Reports: no symptoms Eye: Reports: blurred vision, other ENT: Reports: no symptoms Respiratory: Reports: shortness of breath, wheezing Cardiovascular: Reports: other Gastrointestinal: Reports: constipation Genitourinary: Reports: no symptoms Musculoskeletal: Reports: no symptoms Skin: Reports: no symptoms Psychiatric: Reports: no symptoms Neurological: Reports: no symptoms Endocrine: Reports: no symptoms Hematologic/Lymphatic: Reports: no symptoms ROS Narrative states she just finished antibiotics given by PCP for 4 days. deneis chest pain but had burning. no radiaiton to arms/jaw. she googled and found better on head up position/.sitting up. states has copd and has taken prednisone before. other than constipation- denies any gi/gu symptoms. States had blurred vision due to prednisone- may be it was too high dose last time. Physical Exam General Appearance: WD/WN, alert, moderate distress HEENT: normocephalic, anicteric, mucous membranes moist, PERRL, supple, no JVD Neck: non-tender, supple Respiratory/Chest: chest wall non-tender, normal breath sounds, respiratory distress, crackles/rales Cardiovascular/Chest: regular rhythm, no gallop/murmur Abdomen: normal bowel sounds, non tender, soft, no organomegaly Extremities: no calf tenderness, normal capillary refill, no edema, no cyanosis Skin Exam: warm/dry, no diaphoresis Neurologic: lead sustainability specialist II-XII grossly normal, no motor/sensory deficits, alert, oriented x 3 Musculoskeletal: normal muscle bulk Physical Exam Narrative Dyspnea on talking. has basal crackles. Last 24 Hour Vital Signs Date Time Temp Pulse Resp B/P (MAP) Pulse Ox O2 Delivery O2 Flow Rate FiO2 05/06/18 18:58 97.3 97 23 145/81 100 Room Air 21 05/06/18 18:05 97.3 97 23 145/81 100 Room Air 21 05/06/18 16:24 97.3 100 24 144/81 100 Room Air 21 05/06/18 12:52 97.3 94 23 134/96 100 Room Air 21 05/06/18 12:52 97 23 Room Air 21 05/06/18 12:46 97 23 100 Room Air 21 05/06/18 12:37 89 16 Room Air 21 05/06/18 12:33 89 16 97 Room Air 21 05/06/18 12:33 21 05/06/18 12:02 97.3 98 20 134/96 97 Room Air Laboratory Tests Test 05/06/18 12:20 05/06/18 13:00 White Blood Count 6.2 K/UL (4.8-10.8) Red Blood Count 4.44 M/UL (4.20-5.40) Hemoglobin 13.9 G/DL (12.0-16.0) Hematocrit 41.6 % (37.0-47.0) Mean Corpuscular Volume 94 FL (80-99) Mean Corpuscular Hemoglobin 31.2 PG (27.0-31.0) H Mean Corpuscular Hemoglobin Concent 33.4 G/DL (32.0-36.0) Red Cell Distribution Width 12.3 % (11.6-14.8) Platelet Count 284 K/UL (150-450) Mean Platelet Volume 8.3 FL (6.5-10.1) Neutrophils (%) (Auto) 47.4 % (45.0-75.0) Lymphocytes (%) (Auto) 40.9 % (20.0-45.0) Monocytes (%) (Auto) 8.0 % (1.0-10.0) Eosinophils (%) (Auto) 1.7 % (0.0-3.0) Basophils (%) (Auto) 2.1 % (0.0-2.0) H Prothrombin Time 10.9 SEC (9.30-11.50) Prothromb Time International Ratio 1.0 (0.9-1.1) Activated Partial Thromboplast Time 28 SEC (23-33) D-Dimer 0.91 mg/L FEU (0.00-0.49) H Sodium Level 141 MMOL/L (136-145) Potassium Level 3.8 MMOL/L (3.5-5.1) Chloride Level 109 MMOL/L (98-107) H Carbon Dioxide Level 24 MMOL/L (21-32) Anion Gap 8 mmol/L (5-15) Blood Urea Nitrogen 12 mg/dL (7-18) Creatinine 1.0 MG/DL (0.55-1.30) Estimat Glomerular Filtration Rate > 60 mL/min (>60) Glucose Level 92 MG/DL (74-106) Calcium Level 9.0 MG/DL (8.5-10.1) Total Bilirubin 0.6 MG/DL (0.2-1.0) Aspartate Amino Transf (AST/SGOT) 24 U/L (15-37) Alanine Aminotransferase (ALT/SGPT) 42 U/L (12-78) Alkaline Phosphatase 66 U/L (46-116) Troponin I 1.707 ng/mL (0.000-0.056) Pro-B-Type Natriuretic Peptide 4291 pg/mL (0-125) H Total Protein 6.7 G/DL (6.4-8.2) Albumin 3.4 G/DL (3.4-5.0) Globulin 3.3 g/dL Albumin/Globulin Ratio 1.0 (1.0-2.7) Urine Color Pale yellow Urine Appearance Slightly cloudy Urine pH 5 (4.5-8.0) Urine Specific [place] 1.015 (1.005-1.035) Urine Protein 1+ (NEGATIVE) H Urine Glucose (UA) Negative (NEGATIVE) Urine Ketones Negative (NEGATIVE) Urine Blood Negative (NEGATIVE) Urine Nitrite Negative (NEGATIVE) Urine Bilirubin Negative (NEGATIVE) Urine Urobilinogen Normal MG/DL (0.0-1.0) Urine Leukocyte Esterase Negative (NEGATIVE) Urine RBC 2-4 /HPF (0 - 2) H Urine WBC 2-4 /HPF (0 - 2) Urine Squamous Epithelial Cells Moderate /LPF (NONE/OCC) H Urine Bacteria Few /HPF (NONE) Height (Feet): 5 Height (Inches): 3.00 Weight (Pounds): 146 Medications Current Medications Medications (Trade) Dose Ordered Sig/Ct Route PRN Reason Start Time Stop Time Status Last Admin Dose Admin Acetaminophen (Tylenol) 650 mg Q4H PRN ORAL Mild Pain (Pain Scale 1-3) 05/06/18 19:30 06/05/18 19:29 UNV Albuterol/ Ipratropium (Albuterol/ Ipratropium) 3 ml EVERY 6 HOURS PRN HHN Shortness of Breath 05/06/18 19:30 05/11/18 19:29 UNV Albuterol/ Ipratropium (Albuterol/ Ipratropium) 3 ml Q6HR HHN 05/07/18 00:00 05/12/18 00:00 UNV Atorvastatin Calcium (Lipitor) 20 mg BEDTIME ORAL 05/06/18 21:00 06/05/18 20:59 Clopidogrel Bisulfate (Plavix) 75 mg DAILY ORAL 05/07/18 09:00 06/06/18 08:59 Docusate Sodium (Colace) 100 mg EVERY 12 HOURS ORAL 05/06/18 21:00 06/05/18 20:59 UNV Heparin Sodium/ Dextrose 500 ml @ 15.894 mls/ hr ADJUST PER PROTOCOL IV 05/06/18 15:15 06/05/18 15:14 05/06/18 15:37 Heparin Sodium/ Dextrose 500 ml @ 15.894 mls/ hr ADJUST PER PROTOCOL IV 05/06/18 19:30 06/05/18 19:29 UNV Iopamidol (Isovue-370 150ml) 150 ml NOW PRN INJ Radiology Procedure 05/06/18 13:15 05/08/18 13:01 Metoprolol Tartrate (Lopressor) 25 mg Q12HR ORAL 05/06/18 21:00 06/05/18 20:59 Morphine Sulfate (Morphine Sulfate) 1 mg EVERY 4 HOURS PRN IVP For Pain 05/06/18 19:30 05/13/18 19:29 UNV Nitroglycerin (Ntg) 0.4 mg Every 5 Minutes PRN SL Prn Chest Pain 05/06/18 19:30 06/05/18 19:29 UNV Ondansetron HCl (Zofran) 4 mg Q6H PRN IVP Nausea & Vomiting 05/06/18 19:30 06/05/18 19:29 UNV Pantoprazole (Protonix) 40 mg DAILY ORAL 05/07/18 09:00 06/06/18 08:59 UNV Assessment/Plan Assessment/Plan . NSTEMI: Admit to [facility]. Cardiology consulted. allergy to asa, started on plavix , anticoag full dose, BB . further recs per card. consider lasix. CT negative for PE. Trop I level high/ EKG no acute changes per ER. -COPD ; continue nebulizers. ongoing counselling about smoking. states has not smoked in last 3 days. consdier steroids if not better. just finished antibiotics. monitor. -Counselling about marijuana use -Chronic spine disorder; sp epidural and on pain meds- states has not been taking now sicne heart moya. fu PCP Adryan Loera MD May 06, 2018 20:05
[2018-05-06] MEDS: Docusate 100mg cap ORAL SCH (20:28)
[2018-05-06] MEDS: Metoprolol 25mg tab ORAL SCH (20:29)
[2018-05-06] MEDS ORDERED: Atorvastatin 20mg tab ORAL SCH (21:00)
[2018-05-06] MEDS ORDERED: Heparin 5000 units/ml inj IV SCH ×3 (22:45→23:15)
--- NOTE | 2018-05-06 23:16 | Consultation ---
DATE OF CONSULTATION: 05/06/2018 CARDIOLOGY CONSULTATION CONSULTING PHYSICIAN: Eleazar Jacinto M.D. REFERRING PHYSICIAN: Christopher Mari M.D. REASON FOR CONSULTATION: Increasing shortness of breath. HISTORY OF PRESENT ILLNESS: This is a 52-year-old lady with history of chronic obstructive pulmonary disease presented to emergency room with increasing shortness of breath for one night. The patient has history of chronic obstructive pulmonary disease and has been prescribed inhalers in the past. The patient states that inhaler is not helping her, but denies any chest pain. She denies any prior myocardial infarction or congestive heart failure or coronary artery disease. The patient was admitted and a Cardiology consultation was obtained for further evaluation and management. PAST MEDICAL HISTORY: Includes chronic obstructive pulmonary disease. MEDICATIONS: Per reconciliation. FAMILY HISTORY: Noncontributory. SOCIAL HISTORY: She lives at home. Does not smoke or drink alcohol. REVIEW OF SYSTEMS: Review of systems was negative other than what is mentioned in the history of present illness. PHYSICAL EXAMINATION: VITAL SIGNS: Blood pressure is 145/81, pulse 97, respirations 20, and temperature 97.3. HEAD AND NECK: Showed no JVD. LUNGS: Clear. CARDIOVASCULAR: Shows regular S1 and S2 with no gallop or murmur. ABDOMEN: Soft. EXTREMITIES: No pitting edema. DIAGNOSTIC DATA: EKG shows sinus rhythm with no acute ST-T wave abnormalities. Labs show white count of 6.2, hemoglobin of 14, hematocrit of 41.2, and platelet count of 284,000. Sodium 141, potassium 3.8, BUN of 12, creatinine of 1, and glucose of 92. Troponin is elevated at 1.707. The BNP is 4291. ASSESSMENT/PLAN: 1. Elevated troponin and a creatinine of 1.707. Possible fsu-ZO-wolbccbel myocardial infarction. Her EKG did not show any active ischemic changes. The patient does not have any chest pain. The creatinine is also within normal range. We will completely rule out myocardial infarction protocol. The patient is on aspirin and low-dose beta-radha and statin and we will get an echocardiogram for further evaluation. 2. Possible congestive heart failure as BNP is more than 4000. The echocardiogram is pending. Put the patient on low-dose Lasix. 3. COPD exacerbation. 4. Elevated D-dimer of 0.91. The patient underwent a chest CT angiogram that showed negative for pulmonary embolism with bullous chronic obstructive pulmonary disease changes and bilateral pleural effusion. Thank you very much for allowing me to participate in the care of this patient. Please do not hesitate to contact me for any questions regarding my evaluation. Eleazar Jacinto M.D. DR: JULES JOB#: [id number] CC:
[2018-05-07] VITALS: BP 122/75
[2018-05-07] MEDS: Albuterol/Ipratropium 3ml neb HHN SCH ×4 (01:38→19:34)
[2018-05-07 03:50] LABS: BASOPHILS % (AUTO) 0.5 % (0.0-2.0); HEMATOCRIT 36.7 % (37.0-47.0); HEMOGLOBIN 12.9 G/DL (12.0-16.0); LYMPHOCYTES % (AUTO) 14.7 % (20.0-45.0); MEAN CORPUSCULAR VOLUME 91 FL (80-99); MONOCYTES % (AUTO) 9.6 % (1.0-10.0); NEUTROPHILS % (AUTO) 75.2 % (45.0-75.0); PLATELET COUNT 263 K/UL (150-450); RED BLOOD COUNT 4.03 M/UL (4.20-5.40); WHITE BLOOD COUNT 8.4 K/UL (4.8-10.8)
[2018-05-07 03:59] LABS: CHOLESTEROL 185 MG/DL (< 200); HDL CHOLESTEROL 41 MG/DL (40-60); TRIGLYCERIDES 51 MG/DL (30-150)
[2018-05-07 04:00] VITALS: BP 131/80
[2018-05-07 04:16] LABS: ANION GAP 13 mmol/L (5-15); BLOOD UREA NITROGEN 15 mg/dL (7-18); CALCIUM 9.1 MG/DL (8.5-10.1); CARBON DIOXIDE 22 MMOL/L (21-32); CHLORIDE 108 MMOL/L (98-107); CREATININE 1.1 MG/DL (0.55-1.30); POTASSIUM 4.1 MMOL/L (3.5-5.1); SODIUM 143 MMOL/L (136-145)
[2018-05-07] MEDS ORDERED: Heparin 25,000u/D5W 500ml 500 ML IV SCH ×2 (06:30→14:03)
--- NOTE | 2018-05-07 07:20 | NUR ---
NURSE NOTES: RECEIVED PT RESTING IN BED QUIETLY DENIES CP OR SOB AT THIS TIME.PT AWAKE AND ALERT ORIENTED X4, ADMITTED WITH DX OF COPD EXACERBATION ,NON -STEMI AND HIGH TROPONIN ,CURRENT LEVEL IS H 1.223.PT RECEIVING HEPARIN DRIP 14U/KG/HR = 19.32 ML/HRS CONNECTED ON RT AC H.L INFUSSING WELL.FULL BODY ASSESSMENT DONE.NO ACUTE DISTRESS NOTED AT THIS TIME.WILL CONT TO MONITOR.
--- NOTE | 2018-05-07 07:30 | NUR ---
HAND-OFF: Report given to BERNARDA Mayer.
[2018-05-07 08:00] VITALS: BP_SYST 125; BP_SYST 131; BP_DIAS 80; BP_DIAS 85
[2018-05-07] MEDS: Metoprolol 25mg tab ORAL SCH (09:50)
[2018-05-07] MEDS: Docusate 100mg cap ORAL SCH ×2 (09:50→21:24)
--- NOTE | 2018-05-07 11:30 | NUR ---
NURSE NOTES: PT REQUESTING TO DISCONTINUE HEPARIN DRIP.PT INSTRUCTED THAT DR KATHLEEN NEEDS TO BE NOTIFIED,THEM PT AGREE.PLACED A TELEPHONE CALL TO Donte MARTINEZ AND MADE AWARE AND NOTIFIED REGARDING PT REQUESTING TO STOOPED HEPARIN DRIP .Geovanny KATHLEEN SPOKE WITH THE PT VIA PHONE AND EXPLAINED THE IMPORTANCES TO CONTINUE WITH HEPARIN DRIP.PT AGREE TO CONT WITH HEPARIN DRIP.WILL CONT TO MONITOR.
--- NOTE | 2018-05-07 11:38 | NUR ---
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
[2018-05-07 12:00] VITALS: BP 121/88
[2018-05-07] MEDS ORDERED: Heparin 5000 units/ml inj IV SCH (14:15)
[2018-05-07 16:00] VITALS: BP 129/92
--- NOTE | 2018-05-07 16:29 | General Progress Note ---
Assessment/Plan Status: stable Assessment/Plan NSTEMI: -Admit to [facility] -Cardiology consulted. -allergy to asa -Cont plavix, anticoag full dose, BB -Further recs per card. consider lasix. -CT negative for PE. -Trop I level high/ EKG no acute changes per ER. - cont to trend -Pending ECHO #COPD -continue nebulizers -ongoing counselling about smoking -consider steroids if not better -just finished antibiotics. monitor. -Pulmonary consulted -Counselling about marijuana use #Chronic spine disorder -sp epidural and on pain meds- states has not been taking now since has abominal discomfort. fu PCP Subjective Date patient seen: May 07, 2018 ROS Limited/Unobtainable: No Constitutional: Reports: no symptoms HEENT: Reports: no symptoms Cardiovascular: Reports: no symptoms Respiratory: Reports: no symptoms Gastrointestinal/Abdominal: Reports: no symptoms Genitourinary: Reports: no symptoms Endocrine: Reports: no symptoms Hematologic/Lymphatic: Reports: no symptoms Allergies: Coded Allergies: ASPIRIN (Verified Allergy, Unknown, 05/06/18) DOXYCYCLINE (Verified Allergy, Unknown, 05/06/18) Objective Last 24 Hour Vital Signs Date Time Temp Pulse Resp B/P (MAP) Pulse Ox O2 Delivery O2 Flow Rate FiO2 05/07/18 16:00 Room Air 05/07/18 13:03 Room Air 21 05/07/18 13:03 Room Air 21 05/07/18 12:00 97.6 85 20 121/88 (99) 100 05/07/18 12:00 Room Air 05/07/18 12:00 91 05/07/18 09:50 85 125/85 05/07/18 08:00 Room Air 05/07/18 08:00 97.6 85 21 125/85 (98) 96 05/07/18 08:00 97.6 88 27 131/80 (97) 100 05/07/18 08:00 97 05/07/18 06:57 87 16 99 Room Air 21 05/07/18 06:52 88 12 98 Room Air 21 05/07/18 06:52 36 05/07/18 04:00 97.6 88 27 131/80 (97) 100 05/07/18 04:00 Room Air 05/07/18 04:00 80 05/07/18 01:45 88 16 99 Room Air 05/07/18 01:40 86 16 Room Air 21 05/07/18 01:39 86 16 97 Room Air 21 05/07/18 01:39 21 05/07/18 01:21 83 05/07/18 00:00 Room Air 05/07/18 00:00 98.2 88 27 122/75 (91) 96 05/06/18 21:55 Room Air 05/06/18 20:29 90 123/80 05/06/18 20:00 98.5 94 23 123/80 (94) 96 05/06/18 18:58 97.3 97 23 145/81 100 Room Air 21 05/06/18 18:05 97.3 97 23 145/81 100 Room Air 21 05/06/18 16:24 97.3 100 24 144/81 100 Room Air 21 Intake and Output 05/06/18 05/07/18 19:00 07:00 Intake Total 120 ml 321.1915 ml Output Total 200 ml Balance 120 ml 121.1915 ml Intake Oral 120 ml 100 ml IV Total 221.1915 ml Output Urine Total 200 ml Laboratory Tests 05/06/18 19:40: Activated Partial Thromboplast Time 44H, Troponin I 1.448H 05/06/18 22:00: Activated Partial Thromboplast Time 45H 05/07/18 03:00: Troponin I 1.223H, White Blood Count 8.4, Red Blood Count 4.03L, Hemoglobin 12.9 , Hematocrit 36.7L, Mean Corpuscular Volume 91, Mean Corpuscular Hemoglobin 32.0H, Mean Corpuscular Hemoglobin Concent 35.1, Red Cell Distribution Width 12.0, Platelet Count 263, Mean Platelet Volume 8.4, Neutrophils (%) (Auto) 75.2H , Lymphocytes (%) (Auto) 14.7L, Monocytes (%) (Auto) 9.6, Eosinophils (%) (Auto ) 0.0, Basophils (%) (Auto) 0.5, Sodium Level 143, Potassium Level 4.1, Chloride Level 108H, Carbon Dioxide Level 22, Anion Gap 13, Blood Urea Nitrogen 15, Creatinine 1.1, Estimat Glomerular Filtration Rate > 60, Glucose Level 112H , Calcium Level 9.1, Pro-B-Type Natriuretic Peptide 5346H, Triglycerides Level 51, Cholesterol Level 185, LDL Cholesterol 138H, HDL Cholesterol 41, Cholesterol /HDL Ratio 4.5H, Thyroid Stimulating Hormone (TSH) 0.760 05/07/18 05:00: Activated Partial Thromboplast Time 105H 05/07/18 06:00: Urine Opiates Screen Negative, Urine Barbiturates Screen Negative, Phencyclidine (PCP) Screen Negative, Urine Amphetamines Screen Negative, Urine Benzodiazepines Screen Negative, Urine Cocaine Screen Negative, Urine Marijuana (THC) Screen Negative 05/07/18 12:45: Activated Partial Thromboplast Time 49H Height (Feet): 5 Height (Inches): 5.00 Weight (Pounds): 152 Objective General Appearance: WD/WN, alert, moderate distress HEENT: normocephalic, anicteric, mucous membranes moist, PERRL, supple, no JVD Neck: non-tender, supple Respiratory/Chest: chest wall non-tender, normal breath sounds, respiratory distress, crackles/rales Cardiovascular/Chest: regular rhythm, no gallop/murmur Abdomen: normal bowel sounds, non tender, soft, no organomegaly Extremities: no calf tenderness, normal capillary refill, no edema, no cyanosis Skin Exam: warm/dry, no diaphoresis Neurologic: family support worker II-XII grossly normal, no motor/sensory deficits, alert, oriented x 3 Musculoskeletal: normal muscle bulk Ginny Echevarria MD May 07, 2018 16:29
--- NOTE | 2018-05-07 17:48 | Cardiac Electrophysiology PN ---
Assessment/Plan Assessment/Plan ASSESSMENT/PLAN: 1. Elevated troponin and a creatinine of 1.707, Decrease to 1.4 and 1.2 Possible vmg-KR-wkvqzecjh myocardial infarction. Her EKG did not show any active ischemic changes. The patient does not have any chest pain. The creatinine is also within normal range. Could be due to severe CMP EF 15%. The patient is on Plavix and Coreg and statin. DC heparin drip 2. 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 Start Coreg, Lisinopril, Aldactone and Lasix. Refusing cardiac cath at this time 3. COPD exacerbation. 4. Elevated D-dimer of 0.91. The patient underwent a chest CT angiogram that showed negative for pulmonary embolism with bullous chronic obstructive pulmonary disease changes and bilateral pleural effusion. YAJAIRA RN Subjective Subjective Feeling better. Echo came back EF 15-20% Objective Last 24 Hour Vital Signs Date Time Temp Pulse Resp B/P (MAP) Pulse Ox O2 Delivery O2 Flow Rate FiO2 05/07/18 16:25 75 12 100 Room Air 05/07/18 16:00 36 05/07/18 16:00 78 14 99 Room Air 21 05/07/18 16:00 98.3 89 20 129/92 (104) 100 05/07/18 16:00 Room Air 05/07/18 16:00 89 05/07/18 13:03 Room Air 21 05/07/18 13:03 Room Air 21 05/07/18 12:00 97.6 85 20 121/88 (99) 100 05/07/18 12:00 Room Air 05/07/18 12:00 91 05/07/18 09:50 85 125/85 05/07/18 08:00 Room Air 05/07/18 08:00 97.6 85 21 125/85 (98) 96 05/07/18 08:00 97.6 88 27 131/80 (97) 100 05/07/18 08:00 97 05/07/18 06:57 87 16 99 Room Air 21 05/07/18 06:52 88 12 98 Room Air 05/07/18 06:52 36 05/07/18 04:00 97.6 88 27 131/80 (97) 100 05/07/18 04:00 Room Air 05/07/18 04:00 80 05/07/18 01:45 88 16 99 Room Air 21 05/07/18 01:40 86 16 Room Air 21 05/07/18 01:39 86 16 97 Room Air 21 05/07/18 01:39 21 05/07/18 01:21 83 05/07/18 00:00 Room Air 05/07/18 00:00 98.2 88 27 122/75 (91) 96 05/06/18 21:55 Room Air 05/06/18 20:29 90 123/80 05/06/18 20:00 98.5 94 23 123/80 (94) 96 05/06/18 18:58 97.3 97 23 145/81 100 Room Air 21 05/06/18 18:05 97.3 97 23 145/81 100 Room Air 21 Intake and Output 05/06/18 05/07/18 18:59 06:59 Intake Total 120 ml 302.6485 ml Output Total 200 ml Balance 120 ml 102.6485 ml Intake Oral 120 ml 100 ml IV Total 202.6485 ml Output Urine Total 200 ml Laboratory Tests Test 05/06/18 19:40 05/06/18 22:00 05/07/18 03:00 05/07/18 05:00 Activated Partial Thromboplast Time 44 SEC (23-33) H 45 SEC (23-33) H 105 SEC (23-33) H Troponin I 1.448 ng/mL (0.000-0.056) 1.223 ng/mL (0.000-0.056) White Blood Count 8.4 K/UL (4.8-10.8) Red Blood Count 4.03 M/UL (4.20-5.40) L Hemoglobin 12.9 G/DL (12.0-16.0) Hematocrit 36.7 % (37.0-47.0) L Mean Corpuscular Volume 91 FL (80-99) Mean Corpuscular Hemoglobin 32.0 PG (27.0-31.0) H Mean Corpuscular Hemoglobin Concent 35.1 G/DL (32.0-36.0) Red Cell Distribution Width 12.0 % (11.6-14.8) Platelet Count 263 K/UL (150-450) Mean Platelet Volume 8.4 FL (6.5-10.1) Neutrophils (%) (Auto) 75.2 % (45.0-75.0) H Lymphocytes (%) (Auto) 14.7 % (20.0-45.0) L Monocytes (%) (Auto) 9.6 % (1.0-10.0) Eosinophils (%) (Auto) 0.0 % (0.0-3.0) Basophils (%) (Auto) 0.5 % (0.0-2.0) Sodium Level 143 MMOL/L (136-145) Potassium Level 4.1 MMOL/L (3.5-5.1) Chloride Level 108 MMOL/L (98-107) H Carbon Dioxide Level 22 MMOL/L (21-32) Anion Gap 13 mmol/L (5-15) Blood Urea Nitrogen 15 mg/dL (7-18) Creatinine 1.1 MG/DL (0.55-1.30) Estimat Glomerular Filtration Rate > 60 mL/min (>60) Glucose Level 112 MG/DL (74-106) H Calcium Level 9.1 MG/DL (8.5-10.1) Pro-B-Type Natriuretic Peptide 5346 pg/mL (0-125) H Triglycerides Level 51 MG/DL (30-150) Cholesterol Level 185 MG/DL (< 200) LDL Cholesterol 138 mg/dL (<100) H HDL Cholesterol 41 MG/DL (40-60) Cholesterol/HDL Ratio 4.5 (3.3-4.4) H Thyroid Stimulating Hormone (TSH) 0.760 uiU/mL (0.358-3.740) Test 05/07/18 06:00 05/07/18 12:45 Urine Opiates Screen Negative (NEGATIVE) Urine Barbiturates Screen Negative (NEGATIVE) Phencyclidine (PCP) Screen Negative (NEGATIVE) Urine Amphetamines Screen Negative (NEGATIVE) Urine Benzodiazepines Screen Negative (NEGATIVE) Urine Cocaine Screen Negative (NEGATIVE) Urine Marijuana (THC) Screen Negative (NEGATIVE) Activated Partial Thromboplast Time 49 SEC (23-33) H Objective HEAD AND NECK: Showed no JVD. LUNGS: Clear. CARDIOVASCULAR: Shows regular S1 and S2 with no gallop or murmur. ABDOMEN: Soft. EXTREMITIES: No pitting edema. Eleazar Jacinto MD May 07, 2018 17:48
--- NOTE | 2018-05-07 18:15 | NUR ---
NURSE NOTES: DISCONTINUE HEPARIN DRIP PER Geovanny RINCON ORDERS.WILL CONT TO MONITOR.
--- NOTE | 2018-05-07 19:25 | NUR ---
HAND-OFF: Report given to .LEI MENCHACA.
--- NOTE | 2018-05-07 19:30 | NUR ---
NURSE NOTES: Received Pt is resting on the bed and taking with family. Pt is awake and alert. IV site intact and no sign of infiltration. D/c'ed heparin drip. No sign of acute distress noted. On Tele monitor with SR. Denied pain at this time. Placed fall precaution. Will continue to care plan.
[2018-05-07 20:00] VITALS: BP_SYST 100; BP_SYST 130; BP_DIAS 62; BP_DIAS 90
[2018-05-07] MEDS ORDERED: Atorvastatin 80mg tab ORAL SCH (21:00)
--- NOTE | 2018-05-07 23:01 | NUR ---
NURSE NOTES: Pt refused Coreg 3.125mg. Explained benefits and risks. Will continue to monitor change os condition.
[2018-05-08] VITALS: BP 133/85
[2018-05-08] MEDS: Albuterol/Ipratropium 3ml neb HHN SCH ×3 (00:33→13:28)
[2018-05-08 04:00] VITALS: BP 128/81
[2018-05-08 05:28] LABS: BASOPHILS % (AUTO) 1.2 % (0.0-2.0); EOSINOPHILS % (AUTO) 0.4 % (0.0-3.0); HEMATOCRIT 36.1 % (37.0-47.0); LYMPHOCYTES % (AUTO) 37.5 % (20.0-45.0); MEAN CORPUSCULAR VOLUME 93 FL (80-99); MONOCYTES % (AUTO) 7.8 % (1.0-10.0); NEUTROPHILS % (AUTO) 53.1 % (45.0-75.0); PLATELET COUNT 235 K/UL (150-450); RED BLOOD COUNT 3.88 M/UL (4.20-5.40); RED CELL DISTRIBUTION WIDTH 12.1 % (11.6-14.8); WHITE BLOOD COUNT 8.9 K/UL (4.8-10.8)
--- NOTE | 2018-05-08 07:25 | NUR ---
HAND-OFF: Report given to BERNARDA Skaggs. Pt is resting on the bed and no sign of acute distress noted.
--- NOTE | 2018-05-08 07:26 | NUR ---
NURSE NOTES: Received patient from Blaire Garcia RN. Patient in bed, awake, alert, and verbally responsive. In no respiratory distress. compliance monitor is in placed. Able to ambulate to the bathroom. Denies any pain. Bed in lowest position locked with side rails up. Will continue to follow plan of care.
[2018-05-08 08:00] VITALS: BP 131/91
[2018-05-08] MEDS: Spironolactone 25mg tab ORAL SCH ×2 (09:00→09:06)
[2018-05-08] MEDS ORDERED: Lisinopril 10mg tab ORAL SCH (09:00)
[2018-05-08] MEDS: Docusate 100mg cap ORAL SCH (09:06)
--- NOTE | 2018-05-08 09:45 | NUR ---
NURSE NOTES: Patient refuses Coreg and Aldactone stating that "her blood pressure is not that high" and that what is causing her blood pressure to go up are the medications she is taking. Explained the risks to her, but still refuses.
--- NOTE | 2018-05-08 10:56 | NUR ---
NURSE NOTES: Patient is requesting to be discharged today and states that all the medications she is taking right now, she could take at home. Educated the patient that she still needs monitoring due to her troponin level even though it is trending down. But patient still insist to be discharged today. Left a message to about patient's request and still awaiting for call back.
--- NOTE | 2018-05-08 10:57 | NUR ---
*-* INSURANCE *-* ALL CLINICALS, REVIEWS AND INTERQUAL HAVE BEEN FAXED TO: MAGDI NOGUEIRA: DONNA P- [phone]/ [place] P- [phone] F- [phone] F: [phone]
--- NOTE | 2018-05-08 11:35 | NUR ---
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
--- NOTE | 2018-05-08 11:38 | NUR ---
NURSE NOTES: Dr. Echevarria called back and made her aware about patient's request to be discharged today and she said she will come in and speak to the patient. I also informed the patient.
[2018-05-08 12:00] VITALS: BP 119/68
[2018-05-08 16:00] VITALS: BP 134/94
--- NOTE | 2018-05-08 16:09 | Consultation ---
Consult Note Assessment/Plan DICT # [id number] Christopher Mari MD May 08, 2018 16:09
--- NOTE | 2018-05-08 17:09 | Cardiac Electrophysiology PN ---
Assessment/Plan Assessment/Plan 1. Elevated troponin and a creatinine of 1.707, Decrease to 1.4 and 1.2 Possible syy-RY-crnogstlq myocardial infarction. Her EKG did not show any active ischemic changes. The patient does not have any chest pain. The creatinine is also within normal range. Could be due to severe CMP EF 15%. The patient is on Plavix and Coreg and statin. 2. 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 On Coreg, Lisinopril, Aldactone and Lasix. Refusing cardiac cath or Life Vest at this time 3. COPD exacerbation. 4. Elevated D-dimer of 0.91. The patient underwent a chest CT angiogram that showed negative for pulmonary embolism with bullous chronic obstructive pulmonary disease changes and bilateral pleural effusion. DW RN and Vuu Subjective Subjective Feeling better.Patient seen with RN present. Refusing transfer for Cardiac Cath or Life Vest Objective Last 24 Hour Vital Signs Date Time Temp Pulse Resp B/P (MAP) Pulse Ox O2 Delivery O2 Flow Rate FiO2 05/08/18 16:00 97.8 100 19 134/94 (107) 98 05/08/18 16:00 Room Air 05/08/18 13:28 91 12 100 Room Air 21 05/08/18 13:20 87 16 100 Room Air 21 05/08/18 12:00 98.4 87 19 119/68 (85) 98 05/08/18 12:00 Room Air 05/08/18 11:48 89 05/08/18 09:06 131/91 05/08/18 09:00 89 131/91 05/08/18 08:00 Room Air 05/08/18 08:00 98.0 89 19 131/91 (104) 97 05/08/18 07:49 97 05/08/18 07:28 Room Air 21 05/08/18 07:28 Room Air 21 05/08/18 04:00 Room Air 05/08/18 04:00 98.0 92 20 128/81 (97) 97 05/08/18 04:00 92 05/08/18 00:43 101 18 99 Room Air 21 05/08/18 00:33 100 20 97 Room Air 21 05/08/18 00:00 95 05/08/18 00:00 98.6 90 20 133/85 (101) 100 05/08/18 00:00 Room Air 05/07/18 21:00 95 130/90 05/07/18 20:00 98 05/07/18 20:00 98.3 95 20 130/90 (103) 100 05/07/18 20:00 Room Air 05/07/18 19:44 95 16 99 Room Air 21 05/07/18 19:34 98 20 99 Room Air 21 Intake and Output 05/07/18 05/08/18 19:00 07:00 Intake Total 1075.165 ml 450 ml Balance 1075.165 ml 450 ml Intake Oral 850 ml 450 ml IV Total 225.165 ml # Voids 3 3 # Bowel Movements 1 1 Laboratory Tests Test 05/08/18 03:45 White Blood Count 8.9 K/UL (4.8-10.8) Red Blood Count 3.88 M/UL (4.20-5.40) L Hemoglobin 12.0 G/DL (12.0-16.0) Hematocrit 36.1 % (37.0-47.0) L Mean Corpuscular Volume 93 FL (80-99) Mean Corpuscular Hemoglobin 30.9 PG (27.0-31.0) Mean Corpuscular Hemoglobin Concent 33.2 G/DL (32.0-36.0) Red Cell Distribution Width 12.1 % (11.6-14.8) Platelet Count 235 K/UL (150-450) Mean Platelet Volume 7.5 FL (6.5-10.1) Neutrophils (%) (Auto) 53.1 % (45.0-75.0) Lymphocytes (%) (Auto) 37.5 % (20.0-45.0) Monocytes (%) (Auto) 7.8 % (1.0-10.0) Eosinophils (%) (Auto) 0.4 % (0.0-3.0) Basophils (%) (Auto) 1.2 % (0.0-2.0) Objective HEAD AND NECK: Showed no JVD. LUNGS: Clear. CARDIOVASCULAR: Shows regular S1 and S2 with no gallop or murmur. ABDOMEN: Soft. EXTREMITIES: No pitting edema. Eleazar Jacinto MD May 08, 2018 17:09
--- NOTE | 2018-05-08 17:40 | NUR ---
NURSE NOTES: Patient signed an AMA form even if it was explained the benefits and risks of signing the form and leaving the hospital. Informed Dr. Echevarria and has been made aware all day that patient wanted to leave the hospital. Dr. Jacinto was at bedside and also explained to the patient the benefits and risks. He was also at bedside when patient left the hospital and was given medications prescription.
--- NOTE | 2018-05-08 17:41 | NUR ---
NURSE NOTES: Charge Nurse is also aware of patient's decision to sign the AMA form.
--- NOTE | 2018-05-08 22:01 | Consultation ---
DATE OF CONSULTATION: 05/08/2018 PULMONARY CONSULTATION CONSULTING PHYSICIAN: Christopher Mari M.D. REFERRING PHYSICIAN: Harriet Perales M.D. REASON FOR CONSULTATION: COPD. HISTORY OF PRESENT ILLNESS: The patient is a 52-year-old female, smoker with history of COPD, who presented to the ER with shortness of breath. She was having some generalized discomfort and epigastric gnawing with increase in her baseline cough. No congestion. No fevers or chills. No headaches or dizziness. She had stopped her steroids on her own. She denies any other medical problems. She denies any known history of cardiac disease. She states she was diagnosed with COPD 10 years ago and is currently on Spiriva, Symbicort, p.r.n. Ventolin, and nebulizers at home. Since she came to the hospital, she has been afebrile. Her vital signs have been stable and she is saturating well on room air. She was admitted for management of psq-CG-oqrmdoksa WY with elevated cardiac biomarkers. She had a CT angiogram of her chest done, which showed bullous emphysema with diffuse ground-glass opacities, pulmonary edema, a cavitary hilar mass or nodule of 18 mm, and some ground-glass opacities in the right lower lobe. Echocardiogram was done and the EF is 15% to 20% with global hypokinesis. PAST MEDICAL HISTORY: COPD. PAST SURGICAL HISTORY: None. ALLERGIES: Aspirin and doxycycline. MEDICATIONS: Yxsxl-gp-uhwblcjrw medications, Spiriva, Symbicort, omeprazole, ranitidine, Ventolin, and DuoNebs. Current medications reviewed. SOCIAL HISTORY: She was born in [place]. She has a boyfriend and 2 children who she lives with. 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 Currently is unemployed. Smoked a pack a day since she was 20 years old. Denies drug or alcohol use. FAMILY HISTORY: Noncontributory. REVIEW OF SYSTEMS: Negative other than history of present illness. PHYSICAL EXAMINATION: VITAL SIGNS: Temperature 98.4, pulse 87, blood pressure 119/65, respiratory rate 19, saturating 100% on room air. GENERAL: She is a well-developed, well-nourished female in no acute distress. Awake, alert, and oriented x3. HEENT: Normocephalic and atraumatic. Oropharynx is clear with moist mucous membranes. NECK: Supple without lymphadenopathy. JVP is elevated at 8 cm. CHEST: Clear. Bibasilar rales and distant breath sounds. HEART: Regular rate and rhythm. ABDOMEN: Soft, nontender, and nondistended. EXTREMITIES: No cyanosis, clubbing, or edema. ANCILLARY DATA: White count 8.9, hemoglobin 12, and platelet count 235,000. INR 1.0. Sodium 142, potassium 4.0, chloride 108, bicarbonate 22, BUN 15, creatinine 1.1, glucose 112, calcium 9.1. Troponin 1.7, 1.4, 1.2. BNP 5346. Total cholesterol 185, LDL 138, HDL 41. TSH 0.76. Urinalysis, moderate squamous epithelial cells, 2-4 red blood cells. Toxicology screen negative x2. Chest x-ray shows cardiomegaly with edema. CT angio of the chest is negative for pulmonary embolism. There are bullous COPD changes, diffuse parenchymal abnormalities, an 18 mm right hilar abnormality, borderline enlarged mediastinal lymph nodes, and 15 mm ground-glass opacity in the right lower lobe. ASSESSMENT: The patient is a 52-year-old smoker with history of COPD, presenting with shortness of breath in the setting of decompensated heart failure with severe systolic dysfunction and elevated cardiac biomarkers/anf-RV-rtofgzmeh WY. She incidentally is noted to have an 18 mm cystic mass or nodule in the right hilum. Differential diagnosis of this is broad, but this could be an atypical infection that is fungal infection like an aspergilloma versus a pneumatocele or even a neoplastic process. She has other ground-glass opacities that likely represent edema. PROBLEM LIST: 1. COPD with severe bullous emphysema. 2. An 18 mm calcified right hilar nodule. 3. Scattered bilateral ground-glass opacities. 4. CHF with severe systolic dysfunction and EF of 15%. 5. Decompensated heart failure. 6. Hzb-DA-qkebhbrzn WY. 7. Current daily smoker. TREATMENT PLAN: 1. Optimize pulmonary hygiene/mobilize as tolerated. 2. Continue Symbicort and Spiriva. 3. Zrohc-liu-ehfvr and p.r.n. DuoNebs. 4. With respect to nodule, we will follow up serologies and the patient should have a short-interval outpatient PET-CT. 5. I will speak with the patient's plaster maker, Dr. Cristobal Hernandez in [place]. 6. Monitor volumes and renal function, diuresis per Cardiology. 7. Follow up Cardiology recommendations regarding further workup of non-STEMI and cardiomyopathy. 8. The patient is on a heparin drip for the tdk-TU-tvcmuuqpc WY. 9. Aspiration precautions. 10. Nicotine patch. 11. Continue to abstain from smoking. Dr. Perales, thank you for allowing me to assist in the care of your patient. If I may be of any assistance in the future, please do not hesitate to ask. Deepika Tan JOB#: [id number] CC:
--- NOTE | 2018-05-09 23:20 | Discharge Summary ---
Discharge Summary Hospital Course Date of Admission May 06, 2018 at 14:45 Date of Discharge May 08, 2018 at 17:40 Admitting Diagnosis NSTEMI HPI Janis Oh is a 52 year old female who was admitted on May 06, 2018 at 14:45 for Nstemi 52-year-old female presents ED for evaluation. Patient complaining of shortness of breath since last night. States that she's been prescribed inhalers in the past. Was told that she has COPD. States her inhaler is not helping her at this time. Denies cough. Denies chest pain. Denies fevers or chills. States she has not smoked recently because of her wheezing. Denies sick contacts or recent travel. No other aggravating relieving factors. Denies any other associated symptoms. states that she is having this burning sensations feeling for a while. has not smoked in last 3 days. denies any cocaine/ admits some marijuana. Consultations Pulmonary, Cardiology Hospital Course Pt admitted to [facility] for NSTEMI likely 2/2 demand ischemia, troponin trended down and EKG with no active ischemic changes. Pt also has newly diagnosed severe CMP with EF of 15%, BNP of greater than 4000, started on coreg, lisinopril, aldactone and lasix. Pt refused cardiac cath or life vest at this time. Pt also treated for COPD exacerbation with duonebs. Noted to have elevated D-dimer, CT chest angiogram was negative. Pt left AMA, prior to leaving, explained to pt the risk of leaving against medical advice which includes cardiac or respiratory arrest leading to . PT verbalizes understanding and still would like to leave AMA. Discharge Condition Upon Discharge: critical Discharge Disposition Patient left AMA Discharge Diagnoses: (1) Congestive heart failure (CHF) (2) Hypertension (3) Anxiety (4) Dyspnea (5) Tobacco abuse (6) Spine disorder (7) COPD exacerbation Ginny Echevarria MD May 09, 2018 23:20
== END 2018-05-08 17:40 | disposition left against medical advice (07) | DRG 190 ==
LOC: EMR 12:33 → 2W 14:45 → EDBEDREQ 17:56
DX: I21.4 Non-ST elevation (NSTEMI) myocardial infarction (principal); I50.23 Acute on chronic systolic (congestive) heart failure; J44.1 Chronic obstructive pulmonary disease with (acute) exacerbation; I42.9 Cardiomyopathy, unspecified; I11.0 Hypertensive heart disease with heart failure; F41.9 Anxiety disorder, unspecified; R06.00 Dyspnea, unspecified; F17.200 Nicotine dependence, unspecified, uncomplicated; M53.9 Dorsopathy, unspecified; Z88.6 Allergy status to analgesic agent; Z88.8 Allergy status to other drugs, medicaments and biological substances
CPT/HCPCS: 36415; 71045; 71275; 80048; 80053; 80061; 80307; 81003; 83880; 84443; 84484; 85025; 85379; 85610; 85651; 85730; 86021; 86140; 86635; 93005; 93306; 94640; 94664; 96374; 96375; 99291; J7620